=== PATIENT | male | born 1955 | race Caucasian/White ===

== ENCOUNTER 2017-11-16 07:01 | Inpatient (IN) | payer OTHER ==
--- NOTE | 2017-11-16 07:10 | ER Document Report ---
ED Cardiac - General Stated Complaint: SHORTNESS OF BREATH Time Seen by Provider: 11/16/17 07:09 Notes: 62-year-old male to the emergency department chief complaint of shortness of breath. Patient with one prior history event of atrial fibrillation with rapid ventricular response. Was seen in the emergency department. Spontaneously converted. Was subsequently discharged. Patient did not take any medication. Has chronic lower extremity edema. Was developing some shortness of breath and notice his heart was racing at around 4 AM this morning. Denies any other major symptoms. Denies any chest pain at this time. he presents today by private vehicle. Patient does smoke. Prior history relatively unremarkable. TRAVEL OUTSIDE OF THE [place] IN LAST 30 DAYS: No - HPI Patient complains to provider of: Shortness of breath Use of: denies: Alcohol, Amphetamines, Bath salts, Caffeine, Cocaine, Decongestants, Other Was the onset of pain: Sudden Is the pain a: Chronic problem Quality of pain: None - Related Data Allergies/Adverse Reactions: No Known Allergies Allergy (Verified 11/16/17 07:30) Past Medical History - General Information source: Patient, [facility] Records - Social History Smoking Status: Current Every Day Smoker Cigarette use (# per day): Yes Frequency of alcohol use: None Drug Abuse: None Lives with: Spouse/Significant other Family History: Reviewed & Not Pertinent - Past Medical History Cardiac Medical History: Reports: Hx Hypertension Denies: Hx Coronary Artery Disease, Hx Heart Attack Pulmonary Medical History: Denies: Hx Asthma, Hx Bronchitis, Hx COPD, Hx Pneumonia Neurological Medical History: Denies: Hx Cerebrovascular Accident, Hx Seizures Musculoskeltal Medical History: Denies Hx Arthritis Past Surgical History: Reports: Hx Orthopedic Surgery - knee shoulder - Immunizations Hx Diphtheria, Pertussis, Tetanus Vaccination: No Review of Systems - Review of Systems Notes: Constitutional: denies: Chills, Diaphoresis, Fever, Malaise, Weakness EENT: denies: Eye discharge, Blurred vision, Tearing, Double vision, Nose congestion, Nose discharge, Throat swelling, Mouth pain Cardiovascular: Positive for palpitations, Heart racing, Orthopnea, Dyspnea, bilateral lower extremity edema. denies: Chest pain Respiratory: denies: Cough, Hurts to breathe, Wheezing, positive for: Shortness of breath Gastrointestinal: denies: Abdominal pain, Diarrhea, Nausea, Vomiting, Black stools Genitourinary: denies: Burning, Dysuria, Discharge, Frequency, Flank pain, Hematuria Musculoskeletal: Back pain. denies: Joint pain, Joint swelling, Muscle pain, Muscle stiffness Hematologic/Lymphatic: denies: Anemia, Easy bleeding, Easy bruising, Blood clots Neurological/Psychological: denies: Confusion, Dementia, Depression, Lost consciousness Physical Exam - Vital signs Vitals: Resp Pulse Ox 18 96 11/16/17 07:14 11/16/17 07:14 Interpretation: Tachycardic, Tachypneic - Notes Notes: General: Alert no acute distress HEENT: Atraumatic, normocephalic, pupils equal round react to light and accommodation, extraocular muscles are intact, nose is non tender, posterior pharynx is without erythema or exudate. Tongue is unremarkable Heart: Heart rapid and irregular, bilateral lower extremity edema present. Lungs: Lungs clear to auscultation bilaterally, no wheezes, rhonchi, rales heard. patient is mildly tachypneic Abdomen: Abdomen is soft, nontender, nondistended, normal bowel sounds Neuro: cranial nerves II through XII intact, reflexes intact, sensation intact, Extremities:Moving all extremities. Equal strength bilaterally in the upper lower extremities. No significant deformity Skin: No lesions. Skin intact Psych: Normal insight. Normal judgment Course - Re-evaluation Re-evalutation: 11/16/17 07:29 Patient with atrial fibrillation of rapid ventricular response. EKG shows a A. fib with RVR pattern with heart rate of 156. Started on diltiazem bolus and drip. patient monitor, oxygen, aspirin and reassess. 11/16/17 07:38 mild pulmonary vascular congestion on x-ray indicating some mild CHF but normal heart size. Starting on drip at this time. 11/16/17 09:35 Patient still requiring drip to keep his heart rate in the low 100s. Labs are fairly unremarkable. Patient will need further workup at this time. Will consult with hospitalist for admit. Of note, blood pressure was a little low but now coming back up. - Vital Signs Vital signs: Temp Pulse Resp BP Pulse Ox 97.6 F 20 90/66 L 96 11/16/17 09:16 11/16/17 09:16 11/16/17 09:01 11/16/17 09:01 - Laboratory Result Diagrams: 11/16/17 07:20 11/16/17 07:20 Laboratory results interpreted by me: 11/16/17 07:20 Chloride 110 H Glucose 135 H Creatine Kinase 399 H Critical Care Note - Critical Care Note Total time excluding time spent on procedures (mins): 35 Comments: Atrial fibrillation with rapid ventricular response, IV management of blood pressure and heart rate Discharge - Discharge Clinical Impression: Atrial fibrillation with RVR Condition: Good Disposition: ADMITTED INPATIENT Admitting Provider: Hospitalist - [facility] Unit Admitted: ICU - [facility] Referrals: HEIDY RIVER MD [Primary Care Provider] - Follow up as needed
[2017-11-16] MEDS ORDERED: DILTIAZEM HCL 60 MG TABLET PO ONE (07:18)
[2017-11-16] MEDS ORDERED: DILTIAZEM HCL/D5W 125 MG/125 ML RTUINJ IV PRN (07:18)
[2017-11-16] MEDS ORDERED: DILTIAZEM HCL INJ 25 MG/5 ML VIAL IV ONE ×2 (07:18→08:35)
[2017-11-16] MEDS ORDERED: ASPIRIN 81 MG TABLET, CHEWABLE PO ONE (07:29)
--- NOTE | 2017-11-16 07:29 | RADIOLOGY REPORT (SQ) ---
EXAM DESCRIPTION: XR CHEST 1 VIEW COMPLETED DATE/TME: 11/16/2017 07:09 CLINICAL HISTORY: 62 years Male, sob COMPARISON: One day prior. NUMBER OF VIEWS/TECHNIQUE: 1/AP FINDINGS: Pulmonary vascular congestion, and normal cardiac silhouette. No pneumothorax. Moderate disc desiccation. IMPRESSION: No significant change.
[2017-11-16] MEDS ORDERED: NORMAL SALINE 500 ML IV ONE ×2 (07:30→08:04)
[2017-11-16 07:31] LABS: ABSOLUTE EOSINOPHILS # (AUTO) 0.2 10^3/uL (0.0-0.6); ABSOLUTE LYMPHOCYTES (AUTO) 3.2 10^3/uL (0.5-4.7); ABSOLUTE MONOCYTES (AUTO) 1.1 10^3/uL (0.1-1.4); ABSOLUTE NEUT (AUTO) 4.8 10^3/uL (1.7-8.2); BASOPHILS % (AUTO) 0.3 % (0-2); HEMATOCRIT 45.8 % (37.9-51.0); HEMOGLOBIN 15.9 g/dL (13.5-17.0); LYMPHOCYTES % (AUTO) 33.9 % (13-45); MEAN CORPUSCULAR HEMOGLOBIN 30.8 pg (27.0-33.4); MEAN CORPUSCULAR HGB CONC 34.6 g/dL (32.0-36.0); MEAN CORPUSCULAR VOLUME 89 fl (80-97); MONOCYTES % (AUTO) 11.7 % (3-13); PLATELET COUNT 253 10^3/uL (150-450); RED BLOOD COUNT 5.15 10^6/uL (4.35-5.55); SEGMENTED NEUTROPHILS % (AUTO) 52.1 % (42-78); TOTAL CELLS COUNTED % (AUTO) 100 %; WHITE BLOOD COUNT 9.3 10^3/uL (4.0-10.5)
[2017-11-16 07:43] LABS: ALANINE AMINOTRANSFERASE 40 U/L (21-72); ALBUMIN 4.1 g/dL (3.5-5.0); ALKALINE PHOSPHATASE 81 U/L (38-126); ANION GAP 10 (5-19); ASPARTATE AMINO TRANSFERASE 32 U/L (17-59); BILIRUBIN,DIRECT 0.2 mg/dL (0.0-0.4); BILIRUBIN,TOTAL 0.5 mg/dL (0.2-1.3); BLOOD UREA NITROGEN 14 mg/dL (7-20); CALCIUM 9.6 mg/dL (8.4-10.2); CARBON DIOXIDE 22 mmol/L (22-30); CHLORIDE 110 mmol/L (98-107); CREATINE KINASE 399 U/L (55-170); GLUCOSE 135 mg/dL (75-110); POTASSIUM 4.8 mmol/L (3.6-5.0); SODIUM 142.4 mmol/L (137-145); TOTAL PROTEIN 6.7 g/dL (6.3-8.2)
[2017-11-16 07:54] LABS: CREATINE KINASE MB 3.84 ng/mL (<4.55)
[2017-11-16 07:58] LABS: TROPONIN I < 0.012 ng/mL
--- NOTE | 2017-11-16 08:39 | EKG REPORT ---
SEVERITY:- ABNORMAL ECG - ATRIAL FIBRILLATION WITH RAPID V-RATE LEFT ANTERIOR FASCICULAR BLOCK LVH WITH SECONDARY REPOLARIZATION ABNORMALITY : Confirmed by: Tesha Cuevas 16-Nov-2017 08:39:31
[2017-11-16] MEDS ORDERED: ONDANSETRON HCL INJ/PF 4 MG/2 ML SDV IV PRN (09:46)
[2017-11-16] MEDS ORDERED: ACETAMINOPHEN 325 MG TABLET PO PRN (09:46)
[2017-11-16] MEDS ORDERED: ZOLPIDEM TARTRATE 5 MG TABLET PO PRN (09:46)
[2017-11-16] MEDS: APIXABAN 5 MG TABLET PO SCH ×2 (10:47→17:12)
[2017-11-16] MEDS: NICOTINE 21 MG/24 HR PATCH.TD24 TD PRN (10:47)
--- NOTE | 2017-11-16 11:23 | PDOC H&P ---
History of Present Illness Admission Date/PCP: 11/16/17 09:39 HEIDY RIVER MD Patient complains of: Patient's and chest tightness History of Present Illness: LESLIE PIÑA is a 62 year old male is admitted to [facility]'s emergency department with chief complaint of shortness of breath and palpitations. Patient with one prior history event of atrial fibrillation with rapid ventricular response. He states he was seen in the emergency department at that time, he spontaneously converted and was sent home. That was approximately a year ago. He does not take any medications routinely. He does not seek medical care except when ill either. He has chronic lower extremity edema. He states he woke up at 4 AM feeling somewhat short of breath and noticed his heart was racing. Was developing some shortness of breath and notice his heart was racing at around 4 AM this morning. He denies any specific chest pain associated with palpitations. He did notice decrease in exercise tolerance however. His symptoms improved with rest and worsened with activity. He does smoke approximately a pack per day for the last 40+ years. Prior history relatively unremarkable. Mother had a history of congestive heart failure and is . At the present time, he is asymptomatic. Past Medical History Cardiac Medical History: Reports: Atrial Fibrillation - x1 year with no meds, Hypertension Denies: Coronary Artery Disease, Myocardial Infarction Pulmonary Medical History: Denies: Asthma, Bronchitis, Chronic Obstructive Pulmonary Disease (COPD), Pneumonia EENT Medical History: Reports: None Neurological Medical History: Reports: None Denies: Seizures Endocrine Medical History: Reports: None Renal/ Medical History: Reports: None Malignancy Medical History: Reports: None GI Medical History: Reports: None Musculoskeltal Medical History: Denies: Arthritis Psychiatric Medical History: Reports: Tobacco Dependency Traumatic Medical History: Reports: None Hematology: Denies: Anemia Infectious Medical History: Reports: None Past Surgical History Past Surgical History: Reports: Orthopedic Surgery - Left knee, left shoulder and right great toe Social History Information Source: Patient Lives with: Spouse/Significant other Smoking Status: Current Every Day Smoker Cigarettes Packs Per Day: 1 Number of Years Smokin Last Time Smoked: 11/15/2017 Frequency of Alcohol Use: None Hx Recreational Drug Use: No Hx Prescription Drug Abuse: No - Advance Directive Resuscitation Status: Full Code Surrogate healthcare decision maker:: , should he not be able to make own decisions Family History Family History: CAD, Hypertension Parental Family History Reviewed: Yes Children Family History Reviewed: Yes Sibling(s) Family History Reviewed.: Yes Medication/Allergy Home Medications: No Home Medications 11/16/17 Allergies/Adverse Reactions: No Known Allergies Allergy (Verified 11/16/17 07:30) Review of Systems Constitutional: ABSENT: chills, fever(s), headache(s), weight gain, weight loss Eyes: ABSENT: visual disturbances Ears: ABSENT: hearing changes Cardiovascular: PRESENT: dyspnea on exertion, palpitations Respiratory: PRESENT: dyspnea. ABSENT: cough, hemoptysis Gastrointestinal: ABSENT: abdominal pain, constipation, diarrhea, hematemesis, hematochezia, nausea, vomiting Genitourinary: ABSENT: dysuria, hematuria Musculoskeletal: ABSENT: joint swelling Integumentary: ABSENT: rash, wounds Neurological: ABSENT: abnormal gait, abnormal speech, confusion, dizziness, focal weakness, syncope Psychiatric: ABSENT: anxiety, depression, homidical ideation, suicidal ideation Endocrine: ABSENT: cold intolerance, heat intolerance, polydipsia, polyuria Hematologic/Lymphatic: ABSENT: easy bleeding, easy bruising Physical Exam Vital Signs: Temp Pulse Resp BP Pulse Ox 97.6 F 21 H 102/68 95 11/16/17 09:16 11/16/17 11:10 11/16/17 10:54 11/16/17 11:10 General appearance: PRESENT: no acute distress, morbidly obese, well-developed, well-nourished Head exam: PRESENT: atraumatic, normocephalic Eye exam: PRESENT: conjunctiva pink, EOMI, PERRLA. ABSENT: scleral icterus Ear exam: PRESENT: normal external ear exam Mouth exam: PRESENT: moist, tongue midline Neck exam: ABSENT: carotid bruit, JVD, lymphadenopathy, thyromegaly Respiratory exam: PRESENT: clear to auscultation ady. ABSENT: rales, rhonchi, wheezes Cardiovascular exam: PRESENT: RRR. ABSENT: diastolic murmur, rubs, systolic murmur Pulses: PRESENT: normal dorsalis pedis pul Vascular exam: PRESENT: normal capillary refill GI/Abdominal exam: PRESENT: normal bowel sounds, soft. ABSENT: distended, guarding, mass, organolmegaly, rebound, tenderness Rectal exam: PRESENT: deferred Extremities exam: PRESENT: full ROM, +1 edema - Bilateral lower extremities. ABSENT: calf tenderness, clubbing Musculoskeletal exam: PRESENT: ambulatory, full ROM, normal inspection Neurological exam: PRESENT: alert, awake, oriented to person, oriented to place , oriented to time, oriented to situation, CN II-XII grossly intact. ABSENT: motor sensory deficit Psychiatric exam: PRESENT: appropriate affect, normal mood. ABSENT: homicidal ideation, suicidal ideation Skin exam: PRESENT: dry, intact, warm. ABSENT: cyanosis, rash Results Impressions: Chest X-Ray 11/16/17 07:09 IMPRESSION: No significant change. Assessment & Plan - Diagnosis (1) Atrial fibrillation with RVR Is this a current diagnosis for this admission?: Yes Plan: Patient is presently fairly well rate controlled on diltiazem at 10 mg/h. we will add Eliquis for anticoagulation. Consult cardiology since this is essentially new onset. Check serial troponins. EKG in the a.m. (2) Chest pain Is this a current diagnosis for this admission?: Yes Plan: Serial troponins, EKG, cardiology consult (3) Tobacco abuse Is this a current diagnosis for this admission?: Yes Plan: Counseled, contemplating smoking cessation. Nicotine patch and Xanax as needed (4) Morbid obesity Is this a current diagnosis for this admission?: Yes Plan: Counseled. - Time Time Spent: 50 to 70 Minutes Critical Time spent with patient: 25-34 minutes Smoking Cessation Education: 3 to 10 minutes Medications reviewed and adjusted accordingly: Yes Anticipated discharge: Home - Inpatient Certification Based on my medical assessment, after consideration of the patient's comorbidities, presenting symptoms, or acuity I expect that the services needed warrant INPATIENT care.: Yes I certify that my determination is in accordance with my understanding of Medicare's requirements for reasonable and necessary INPATIENT services [42 CFR 412.3e].: Yes Medical Necessity: Need Close Monitoring Due to Risk of Patient Decompensation, Need For Continuous Telemetry Monitoring, Risk of Complication if Not Cared For in Hospital, Risk of Diagnosis Which Will Require Inpatient Eval/Care/Monitoring
[2017-11-16] MEDS ORDERED: DRONEDARONE HYDROCHLORIDE 400 MG TABLET PO ONE (11:30)
--- NOTE | 2017-11-16 11:59 | PDOC CONSULTATION ---
Consultation Consult Date: 11/16/17 Attending physician:: SONIA ARTEAGA II Consult reason:: Atrial fibrillation with rapid ventricular response History of Present Illness Admission Date/PCP: 11/16/17 09:39 HEIDY RIVER MD Patient complains of: Fatigue and tiredness as well as palpitations History of Present Illness: LESLIE PIÑA is a 62 year old male is admitted to [facility]'s emergency department with chief complaint of shortness of breath and palpitations. Patient with one prior history event of atrial fibrillation with rapid ventricular response. He states he was seen in the emergency department at that time, he spontaneously converted and was sent home. That was approximately a year ago. He does not take any medications routinely. He does not seek medical care except when ill either. He has chronic lower extremity edema. He states he woke up at 4 AM feeling somewhat short of breath and noticed his heart was racing. Was developing some shortness of breath and notice his heart was racing at around 4 AM this morning. He denies any specific chest pain associated with palpitations. He did notice decrease in exercise tolerance however. His symptoms improved with rest and worsened with activity. He does smoke approximately a pack per day for the last 40+ years. Prior history relatively unremarkable. Mother had a history of congestive heart failure and is . At the present time, he is asymptomatic. This history reviewed by the hospitalist was reviewed and confirmed. Patient has seen me in the past in the office however it was in 2014. At that time he claims he had a stress test. He also had a echocardiogram. Patient also had PSG and a titration study therefore he has sleep apnea. However patient subsequently was lost to follow-up. Patient does describe history of restless leg syndrome. Patient denied prior history of cardiac problems except for a episode of transient atrial fibrillation. Past Medical History Cardiac Medical History: Reports: Atrial Fibrillation - x1 year with no meds, Hypertension Denies: Coronary Artery Disease, Myocardial Infarction Pulmonary Medical History: Denies: Asthma, Bronchitis, Chronic Obstructive Pulmonary Disease (COPD), Pneumonia EENT Medical History: Reports: None Neurological Medical History: Reports: None Denies: Seizures Endocrine Medical History: Reports: None Renal/ Medical History: Reports: None Malignancy Medical History: Reports: None GI Medical History: Reports: None Musculoskeltal Medical History: Denies: Arthritis Psychiatric Medical History: Reports: Tobacco Dependency Traumatic Medical History: Reports: None Hematology: Denies: Anemia Infectious Medical History: Reports: None Past Surgical History Past Surgical History: Reports: Orthopedic Surgery - Left knee, left shoulder and right great toe Social History Information Source: Patient Lives with: Spouse/Significant other Smoking Status: Current Every Day Smoker Cigarettes Packs Per Day: 1 Number of Years Smokin Last Time Smoked: 11/15/2017 Frequency of Alcohol Use: None Hx Recreational Drug Use: No Hx Prescription Drug Abuse: No - Advance Directive Resuscitation Status: Full Code Family History Family History: CAD, Hypertension Parental Family History Reviewed: Yes Children Family History Reviewed: Yes Sibling(s) Family History Reviewed.: Yes Medication/Allergy Home Medications: No Home Medications 11/16/17 Allergies/Adverse Reactions: No Known Allergies Allergy (Verified 11/16/17 07:30) Review of Systems Review of Systems: Please see history of present illness and past medical history as wall. Constitutional: No fever or chills reported. Head : No recent chronic headaches, recent head injury. Eyes: No recent eye pain, diplopia, redness, discharge, acute visual changes. Ears: No recent chronic ear pain, acute hearing loss, ear discharge. Oral cavity: No recent ulcerations, bleeding, oral cavity discomfort. Neck: No recent acute neck pain reported. Hematologic: No recent easy bruising or bleeding. Lymphatic: No recent lymph node enlargement reported. Cardiovascular system review: See history of present illness. Respiratory system review: No hemoptysis or blood clots in the lungs reported. Mild Shortness of breath on exertion Gastrointestinal system review: Negative for any recent acute hematemesis, melena. Genitourinary system review: No recent acute or chronic hematuria, flank pain, UTI etc. reported. Skin system review: Negative for any recent abnormal bruising, no rash, no pruritus reported. Neurologic: No prior history of strokes, mini strokes, seizure disorder. Psychologic: No history of major psychosis or major depression reported. Musculoskeletal: Minor aches and pains reported. No acute joint swelling reported. Endocrine: No recent polyuria, polydipsia, recent heat or cold intolerance. Physical Exam Vital Signs: Temp Pulse Resp BP Pulse Ox 97.6 F 12 117/68 97 11/16/17 09:16 11/16/17 11:41 11/16/17 11:14 11/16/17 11:41 Exam: GENERAL: well-nourished and in no acute distress. Alert and oriented x3 HEAD: Atraumatic, normocephalic. EYES: Pupils equal round and reactive to light, extraocular movements intact, sclera anicteric, conjunctiva are normal. ENT: TMs normal, nares patent, oropharynx clear without exudates. Moist mucous membranes. No oral ulcerations or bleeding gums noted NECK: supple without lymphadenopathy. Trachea is central. No cervical or axillary lymphadenopathy noted. Carotids are 2+, JVD WNL LUNGS: Respiration seems nonlabored, no significant accessory muscle action noted. Breath sounds clear to auscultation bilaterally and equal noted. No wheezes rales or rhonchi noted. No significant dullness noted on percussion. CHEST: Palpation of the chest wall shows no significant chest wall tenderness. 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 ABDOMEN: Soft, no significant tenderness appreciated, normoactive bowel sounds. No guarding, no rebound. No rigidity noted . No masses appreciated. EXTREMITIES: Pedal pulses are 1-2+, no calf tenderness noted. No clubbing or cyanosis. 1+ pedal edema noted NEUROLOGICAL: Focused neurological exam showed no significant neurologic deficit. Normal speech, no focal weakness appreciated. PSYCH: Normal mood, normal affect. Judgment and insight within normal limits. SKIN: No significant ecchymosis, skin is noted to be warm. MUSCULOSKELETAL EXAM: No significant acute joint swelling noted. Results Laboratory Results: 11/16/17 10:45 Troponin I 0.020 EKG Comments: EKG shows atrial fibrillation with rapid ventricular response. No acute ST-T wave changes are noted. Impressions: Chest X-Ray 11/16/17 07:09 IMPRESSION: No significant change. Assessment & Plan - Diagnosis (1) Atrial fibrillation with RVR Is this a current diagnosis for this admission?: Yes (2) Restless leg syndrome Is this a current diagnosis for this admission?: Yes (3) HTN (hypertension) Qualifiers: Hypertension type: essential hypertension Qualified Code(s): I10 - Essential (primary) hypertension Is this a current diagnosis for this admission?: Yes (4) Tobacco abuse Is this a current diagnosis for this admission?: Yes (5) Sleep apnea syndrome Qualifiers: Sleep apnea type: unspecified type Qualified Code(s): G47.30 - Sleep apnea , unspecified Is this a current diagnosis for this admission?: Yes (6) Obesity Qualifiers: Obesity type: unspecified obesity type Obesity classification: unspecified obesity classification Serious obesity comorbidity presence: unspecified whether serious comorbidity present Qualified Code(s): E66.9 - Obesity, unspecified Is this a current diagnosis for this admission?: Yes - Notes Notes: Atrial fibrillation with rapid ventricular response: Patient is at risk for thromboembolic phenomena. This was explained. Agree with Eliquis therapy. Agree with rate control with Cardizem. Will start patient on multaq at 400 mg p.o. twice daily. Discussed association of sleep apnea and obesity with atrial fibrillation. Hopefully patient will convert to sinus rhythm. Would recommend regular follow- up. Eventually if patient remains in atrial fibrillation, will consider cardioversion/ablation/other antiarrhythmic therapy if needed. Hypertension: This was noted on as 1 of his previous diagnosis. Monitor blood pressure. Tobacco abuse: Patient has been advised to quit smoking. Sleep apnea syndrome: Discussed that he was noted to have this on prior testing. Patient probably still has it but this diagnosis will need to be reestablished. Discussed that treatment of sleep apnea will prevent recurrence of atrial fibrillation. Obesity: Patient encouraged in weight loss. Restless leg syndrome: Tends to get better with treatment of sleep apnea. May consider dopamine agonist etc. for treatment. - Time Time Spent: 30 to 50 Minutes - CODE STATUS was discussed, patient remains full code. Surrogate decision-maker patient's spouse. Multiple medical problems were addressed. More than 50% of the time spent coordinating care, discussing management plans with involved caregivers. Management plans discussed with involved personnels. Medical decision making was of moderate to high complexity , patient's has multiple comorbidities. Medications reviewed and adjusted accordingly: Yes
[2017-11-16] MEDS ORDERED: AMIODARONE HCL 150 MG in DEXTROSE 5%-WATER 100 ML IV ONE (12:00)
--- NOTE | 2017-11-16 18:47 | XCELERA REPORT ---
[address] [address] Transthoracic Echocardiogram Report Name: LESLIE PIÑA Age: 62 yrs Gender: Male : 1955 Patient Status: Inpatient Patient Location: [address] [place] [address] Study Date: 11/16/2017 02:01 PM Height: 76 in Weight: 335 lb BSA: 2.8 m2 Procedure: A complete two-dimensional transthoracic echocardiogram was performed (2D, M-mode, spectral and color flow Doppler). The study was technically difficult with many images being suboptimal in quality. Reason For Study: A Fib, RVR Ordering Physician: TESHA ACRDONA Performed By: Kimberly Gomez Interpretation Summary The left ventricular ejection fraction is normal. There is mild concentric left ventricular hypertrophy. The left ventricle is grossly normal size. Wall motion cannot be accurately commented on, but no definite regional wall motion abnormalities noted. The right ventricle is grossly normal size. The right ventricular systolic function is normal. The right atrium is normal in size The left atrial size is normal. There is a trace amount of mitral regurgitation There is no mitral valve stenosis. No aortic regurgitation is present. There is no aortic valve stenosis There is a trace or physiologic amount of tricuspid regurgitation Tricuspid regurgitation jet envelope not well defined to measure RV systolic pressure accurately. The aortic root is not well visualized. The inferior vena cava appeared normal and decreased > 50% with respiration (RAP 5-10 mmHg) There is no pericardial effusion. MMode/2D Measurements & Calculations RVDd: 2.9 cm LVIDd: 4.3 cm FS: 31.8 % Ao root diam: 3.0 cm IVSd: 1.2 cm LVIDs: 2.9 cm EDV(Teich): 82.6 ml LVPWd: 1.2 cm ESV(Teich): 32.9 ml Ao root area: 6.8 cm2 EF(Teich): 60.2 % LA dimension: 3.3 cm Doppler Measurements & Calculations MV E max jayesh: MV P1/2t max jayesh: Ao V2 max: LV V1 max P.8 cm/sec 91.8 cm/sec 128.6 cm/sec 5.2 mmHg MV P1/2t: 34.2 msec Ao max PG: LV V1 max: 6.6 mmHg 113.5 cm/sec MVA(P1/2t): 6.4 cm2 MV dec slope: 785.9 cm/sec2 MV dec time: 0.11 sec PA V2 max: TR max jayesh: 87.4 cm/sec 206.3 cm/sec PA max PG: TR max P.0 mmHg 3.1 mmHg Left Ventricle The left ventricle is grossly normal size. There is mild concentric left ventricular hypertrophy. The left ventricular ejection fraction is normal. LV diastolic function could not be adequately assessed due to atrial fibrilation. Wall motion cannot be accurately commented on, but no definite regional wall motion abnormalities noted. Right Ventricle The right ventricle is grossly normal size. There is normal right ventricular wall thickness. The right ventricular systolic function is normal. Atria The right atrium is normal in size. The left atrial size is normal. Mitral Valve The mitral valve is grossly normal. There is no mitral valve stenosis. There is a trace amount of mitral regurgitation. Aortic Valve The aortic valve is grossly normal. There is no aortic valve stenosis. No aortic regurgitation is present. Tricuspid Valve The tricuspid valve is not well visualized, but is grossly normal. There is no tricuspid stenosis. There is a trace or physiologic amount of tricuspid regurgitation. Tricuspid regurgitation jet envelope not well defined to measure RV systolic pressure accurately. Pulmonic Valve The pulmonic valve is not well visualized. Great Vessels The aortic root is not well visualized. The inferior vena cava appeared normal and decreased > 50% with respiration (RAP 5-10 mmHg). Effusions There is no pericardial effusion. : TESHA CARDONA > Tesha Cardona
[2017-11-16] MEDS: DILTIAZEM HCL/D5W 125 MG/125 ML RTUINJ IV PRN (19:14)
[2017-11-16] MEDS: ALPRAZOLAM 0.5 MG TABLET PO PRN (20:45)
[2017-11-16] MEDS: DRONEDARONE HYDROCHLORIDE 400 MG TABLET PO SCH (21:07)
[2017-11-17 07:37] LABS: PROTHROMBIN TIME 13.7 SEC (11.4-15.4)
[2017-11-17 07:38] LABS: PARTIAL THROMBOPLASTIN TIME 36.9 SEC (23.5-35.8)
[2017-11-17 07:55] LABS: ALANINE AMINOTRANSFERASE 37 U/L (21-72); ALBUMIN 3.2 g/dL (3.5-5.0); ALKALINE PHOSPHATASE 60 U/L (38-126); ANION GAP 9 (5-19); ASPARTATE AMINO TRANSFERASE 24 U/L (17-59); BILIRUBIN,DIRECT 0.3 mg/dL (0.0-0.4); BILIRUBIN,TOTAL 0.6 mg/dL (0.2-1.3); BLOOD UREA NITROGEN 14 mg/dL (7-20); CARBON DIOXIDE 24 mmol/L (22-30); CHLORIDE 109 mmol/L (98-107); CHOLESTEROL 133.45 mg/dL (0-200); GLUCOSE 83 mg/dL (75-110); POTASSIUM 4.6 mmol/L (3.6-5.0); SODIUM 142.3 mmol/L (137-145); TOTAL PROTEIN 5.6 g/dL (6.3-8.2); TRIGLYCERIDES 231 mg/dL (<150)
[2017-11-17 08:05] LABS: DIRECT LDL 76 mg/dL (<100)
[2017-11-17 08:08] LABS: VLDL CHOLESTEROL 46.2 mg/dL (10-31)
[2017-11-17 08:11] LABS: FREE T3 4.19 pg/mL (2.77-5.27); FREE T4 (FREE THYROXINE) 0.84 ng/dL (0.78-2.19)
[2017-11-17 08:24] LABS: THYROID STIMULATING HORMONE 1.9 uIU/mL (0.47-4.68)
--- NOTE | 2017-11-17 09:39 | EKG REPORT ---
SEVERITY:- ABNORMAL ECG - ATRIAL FIBRILLATION LEFT AXIS DEVIATION PROLONGED QT INTERVAL : Confirmed by: Tesha Cuevas 17-Nov-2017 09:38:33
[2017-11-17] MEDS: ALPRAZOLAM 0.5 MG TABLET PO PRN (09:49)
[2017-11-17] MEDS: DRONEDARONE HYDROCHLORIDE 400 MG TABLET PO SCH ×2 (09:49→21:14)
[2017-11-17] MEDS: APIXABAN 5 MG TABLET PO SCH ×2 (09:50→18:19)
[2017-11-17] MEDS: DILTIAZEM HCL/D5W 125 MG/125 ML RTUINJ IV PRN ×2 (10:21→20:37)
[2017-11-17] MEDS: NICOTINE 21 MG/24 HR PATCH.TD24 TD PRN (10:22)
[2017-11-17] MEDS: METOPROLOL SUCCINATE 25 MG TAB.SR.24H PO SCH ×2 (11:27→21:13)
--- NOTE | 2017-11-17 12:12 | PDOC PROGRESS REPORT ---
Subjective Progress Note for:: 11/17/17 Subjective:: Patient seems to be doing better with gradual improvement. Pt is denying any chest arm or neck discomfort. Patient denying any PND, orthopnea. Patient denied any sustained palpitations, dizziness, syncope, near syncope. Patient denying any fever chills. Patient denying any other significant discomfort. Patient is maintaining atrial fibrillation. Heart rate is very variable, tends to go up with exertion. Review of systems: Rest review of systems negative. Medications: Medications have been reviewed. Reason For Visit: ATRIAL FIBRILLATION WITH RAPID VENTRICULAR RESPONS Physical Exam Vital Signs: Temp Pulse Resp BP Pulse Ox 97.9 F 113 H 20 128/74 H 92 11/17/17 07:22 11/17/17 11:00 11/17/17 07:22 11/17/17 11:00 11/17/17 07:22 Intake & Output 11/16/17 11/17/17 11/18/17 06:59 06:59 06:59 Intake Total 1097 Output Total 1075 Balance 22 Weight 154.3 kg Exam: GENERAL: well-nourished and in no acute distress. Alert and oriented x3 HEAD: Atraumatic, normocephalic. EYES: Pupils equal round and reactive to light, extraocular movements intact, sclera anicteric, conjunctiva are normal. ENT: TMs normal, nares patent, oropharynx clear without exudates. Moist mucous membranes. No oral ulcerations or bleeding gums noted NECK: supple without lymphadenopathy. Trachea is central. No cervical or axillary lymphadenopathy noted. Carotids are 2+, JVD WNL LUNGS: Respiration seems nonlabored, no significant accessory muscle action noted. Breath sounds clear to auscultation bilaterally and equal noted. No wheezes rales or rhonchi noted. No significant dullness noted on percussion. CHEST: Palpation of the chest wall shows no significant chest wall tenderness. 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 ABDOMEN: Soft, no significant tenderness appreciated, normoactive bowel sounds. No guarding, no rebound. No rigidity noted . No masses appreciated. EXTREMITIES: Pedal pulses are 1-2+, no calf tenderness noted. No clubbing or cyanosis. negative pedal edema noted NEUROLOGICAL: Focused neurological exam showed no significant neurologic deficit. Normal speech, no focal weakness appreciated. PSYCH: Normal mood, normal affect. Judgment and insight within normal limits. SKIN: No significant ecchymosis, skin is noted to be warm. MUSCULOSKELETAL EXAM: No significant acute joint swelling noted. Results Laboratory Results: 11/17/17 06:19 18 11/17/17 06:19 06:19 Sodium 142.3 Potassium 4.6 Chloride 109 H Carbon Dioxide 24 Anion Gap 9 BUN 14 Creatinine 0.74 Est GFR ( Amer) > 60 Est GFR (Non-Af Amer) > 60 Glucose 83 Calcium 9.0 Magnesium 2.0 Total Bilirubin 0.6 AST 24 ALT 37 Alkaline Phosphatase 60 Total Protein 5.6 L Albumin 3.2 L Triglycerides 231 H Cholesterol 133.45 LDL Cholesterol Direct 76 VLDL Cholesterol 46.2 H HDL Cholesterol 28 L TSH 1.90 Free T4 0.84 Free T3 pg/mL 4.19 18 11/17/17 10:45 06:19 Troponin I 0.020 NT-Pro-B Natriuret Pep 1640 H EKG Comments: Atrial fibrillation with somewhat rapid heart rate response. Impressions: Chest X-Ray 11/16/17 07:09 IMPRESSION: No significant change. Assessment & Plan - Diagnosis (1) Atrial fibrillation with RVR Is this a current diagnosis for this admission?: Yes (2) Restless leg syndrome Is this a current diagnosis for this admission?: Yes (3) HTN (hypertension) Qualifiers: Hypertension type: essential hypertension Qualified Code(s): I10 - Essential (primary) hypertension Is this a current diagnosis for this admission?: Yes (4) Tobacco abuse Is this a current diagnosis for this admission?: Yes (5) Sleep apnea syndrome Qualifiers: Sleep apnea type: unspecified type Qualified Code(s): G47.30 - Sleep apnea , unspecified Is this a current diagnosis for this admission?: Yes (6) Obesity Qualifiers: Obesity type: unspecified obesity type Obesity classification: unspecified obesity classification Serious obesity comorbidity presence: unspecified whether serious comorbidity present Qualified Code(s): E66.9 - Obesity, unspecified Is this a current diagnosis for this admission?: Yes - Notes Notes: 2D echo results were reviewed. Study was technically difficult. Intracardiac thrombus cannot be excluded. Patient could have been having paroxysmal A. fib. Therefore it was felt that cardioversion should preferably be performed if needed after 3-4 weeks of adequate anticoagulation. This was explained to the patient. Have also scheduled patient for a nuclear stress test. This is to rule out any CAD and get another assessment of LVEF by EKG gated imaging. Atrial fibrillation with rapid ventricular response: Patient is at risk for thromboembolic phenomena. This was explained. Agree with Eliquis therapy. Patient seems to have increased heart rate with exertion. Will add beta-abhilash , metoprolol succinate at 25 mg p.o. twice daily. Continue patient on multaq at 400 mg p.o. twice daily. Discussed association of sleep apnea and obesity with atrial fibrillation. Hypertension: This was noted on as 1 of his previous diagnosis. Monitor blood pressure. Tobacco abuse: Patient has been advised to quit smoking. Continue nicotine patch while in the hospital. Sleep apnea syndrome: Discussed that he was noted to have this on prior testing. Patient probably still has it but this diagnosis will need to be reestablished. Discussed that treatment of sleep apnea will prevent recurrence of atrial fibrillation. Obesity: Patient encouraged in weight loss. Restless leg syndrome: Tends to get better with treatment of sleep apnea. May consider dopamine agonist etc. for treatment. - Time Time with patient: Greater than 35 minutes - CODE STATUS was discussed, patient remains full code. Surrogate decision-maker patient's . Multiple medical problems were addressed. More than 50% of the time spent coordinating care, discussing management plans with involved caregivers. Management plans discussed with involved personnels. Medical decision making was of moderate to high complexity, patient's has multiple comorbidities. Medications reviewed and adjusted accordingly: Yes
[2017-11-17] MEDS ORDERED: FUROSEMIDE 40 MG TABLET PO ONE (14:00)
--- NOTE | 2017-11-17 19:16 | PDOC PROGRESS REPORT ---
Subjective Progress Note for:: 11/17/17 Subjective:: Feeling better. Denies palpitations at this time, no fever or chills, no chest pain or shortness of breath. No abdominal pain, no nausea or vomiting. Reason For Visit: AFIB WITH RVR Physical Exam Vital Signs: Temp Pulse Resp BP Pulse Ox 97.2 F 111 H 16 123/97 H 94 11/17/17 15:34 11/17/17 18:00 11/17/17 15:34 11/17/17 18:00 11/17/17 15:34 Intake & Output 11/16/17 11/17/17 11/18/17 06:59 06:59 06:59 Intake Total 865 Output Total 800 Balance 65 Weight 154.3 kg GEN: NAD, well-developed, well-nourished CV: Irregularly irregular, NL S1S2 LUNGS: CTA bilaterally ABDOMEN Soft, NT, +BS EXTERMITIES: No e/c/c NEURO: Alert, oriented 3, no acute weakness Results Laboratory Results: 11/17/17 17:22 Troponin I < 0.012 Impressions: Chest X-Ray 11/16/17 07:09 IMPRESSION: No significant change. Assessment & Plan - Plan Summary Plan Summary: (1) Atrial fibrillation with RVR Is this a current diagnosis for this admission?: Yes Plan: Patient was started on Multaq by Dr. Cuevas of cardiology and presently still on diltiazem at 10 mg/h. Will continue Eliquis for anticoagulation. 2D echo with no obvious thrombus, but cannot exclude. Patient likely will need 4 weeks of anticoagulation and possible cardioversion as outpatient per supervisor area. . (2) Chest pain Is this a current diagnosis for this admission?: Yes Plan: Resolved (3) Tobacco abuse Is this a current diagnosis for this admission?: Yes Plan: Counseled smoking cessation. Continue nicotine patch (4) Morbid obesity Is this a current diagnosis for this admission?: Yes Plan: Counseled weight loss.
[2017-11-18 06:24] LABS: ABSOLUTE BASOPHILS # (AUTO) 0.1 10^3/uL (0.0-0.2); ABSOLUTE EOSINOPHILS # (AUTO) 0.2 10^3/uL (0.0-0.6); ABSOLUTE LYMPHOCYTES (AUTO) 3.4 10^3/uL (0.5-4.7); ABSOLUTE MONOCYTES (AUTO) 1.1 10^3/uL (0.1-1.4); ABSOLUTE NEUT (AUTO) 5.6 10^3/uL (1.7-8.2); BASOPHILS % (AUTO) 0.6 % (0-2); EOSINOPHILS % (AUTO) 2.4 % (0-6); HEMATOCRIT 42.8 % (37.9-51.0); HEMOGLOBIN 14.8 g/dL (13.5-17.0); LYMPHOCYTES % (AUTO) 32.7 % (13-45); MEAN CORPUSCULAR HEMOGLOBIN 30.6 pg (27.0-33.4); MEAN CORPUSCULAR HGB CONC 34.5 g/dL (32.0-36.0); MEAN CORPUSCULAR VOLUME 89 fl (80-97); MONOCYTES % (AUTO) 10.7 % (3-13); PLATELET COUNT 218 10^3/uL (150-450); RED BLOOD COUNT 4.83 10^6/uL (4.35-5.55); RED CELL DISTRIBUTION WIDTH 13.1 % (11.5-14.0); SEGMENTED NEUTROPHILS % (AUTO) 53.6 % (42-78); TOTAL CELLS COUNTED % (AUTO) 100 %; WHITE BLOOD COUNT 10.5 10^3/uL (4.0-10.5)
[2017-11-18 06:39] LABS: ANION GAP 8 (5-19); BLOOD UREA NITROGEN 15 mg/dL (7-20); CALCIUM 9.1 mg/dL (8.4-10.2); CARBON DIOXIDE 22 mmol/L (22-30); CHLORIDE 111 mmol/L (98-107); GLUCOSE 91 mg/dL (75-110); POTASSIUM 4.8 mmol/L (3.6-5.0); SODIUM 140.5 mmol/L (137-145)
[2017-11-18] MEDS: DILTIAZEM HCL/D5W 125 MG/125 ML RTUINJ IV PRN (07:02)
[2017-11-18] MEDS ORDERED: METOPROLOL SUCCINATE 25 MG TAB.SR.24H PO ONE (08:30)
[2017-11-18] MEDS ORDERED: DILTIAZEM HCL 240 MG CAPSULE.CR PO ONE (09:00)
--- NOTE | 2017-11-18 09:36 | EKG REPORT ---
SEVERITY:- ABNORMAL ECG - ATRIAL FIBRILLATION LEFT AXIS DEVIATION PROLONGED QT INTERVAL : Confirmed by: Tesha Cuevas 18-Nov-2017 09:35:46
[2017-11-18] MEDS ORDERED: FUROSEMIDE 40 MG TABLET PO SCH (10:00)
[2017-11-18] MEDS: DRONEDARONE HYDROCHLORIDE 400 MG TABLET PO SCH (11:04)
[2017-11-18] MEDS: METOPROLOL SUCCINATE 25 MG TAB.SR.24H PO SCH (11:04)
[2017-11-18] MEDS: APIXABAN 5 MG TABLET PO SCH (11:04)
--- NOTE | 2017-11-18 12:35 | DRAGON STRESS TEST REPORT ---
INTRAVENOUS LEXISCAN CARDIOLITE STRESS TEST USING SINGLE PHOTON EMMISION COMPUTERIZED TOMOGRAPHIC. DATE OF PROCEDURE: November 18, 2017, INDICATION : Atrial fibrillation and dyspnea. CARDIAC RISK FACTORS: Hypertension, tobacco abuse, family history of CAD RESTING EKG: Atrial fibrillation, no baseline ST-T wave changes noted. STRESS EKG: No significant ST segment changes noted with LexiScan bolus REASON FOR TERMINATION: Protocol. PROCEDURE REPORT: Baseline heart rate 107 beats per minute with blood pressure of 107/74. Patient had no significant complaints. Patient was bolused with Lexiscan 0.4 mg intravenously followed by saline bolus. Heart rate at 2 minutes post bolus 98 with a blood pressure of 84/57. 3 minutes post bolus heart rate 100 with blood pressure of 103/64. No significant EKG changes were noted. Patient had no significant complaints during the procedure or postprocedure. CONCLUSIONS: Normal EKG and hemodynamic response to IV LexiScan. NUCLEAR DATA: At rest the patient was given 15.59 millicuries of technetium 99 sestamibi injected intravenously. As per protocol rest gated SPECT images were obtained. On day of stress test, the patient was given intravenous LexiScan at a dose of 0.4 mg in 5 mL intravenously, followed by flush with normal saline. Subsequently the stress dose of 46.6 millicuries of technetium 99 sestamibi was injected intravenously. As per protocol stress gated images were obtained. NUCLEAR INTERPRETATION: Both raw and processed data were used for interpretation. Visual, qualitative, computer-generated quantitative data was used. There was good myocardial uptake of technetium compound. Motion artifact and soft tissue attenuations were noted. Increased visceral uptake was noted. No definitive areas of transient perfusion defect noted, No definitive areas of fixed perfusion defect or scars noted. EKG gated imaging showed LV EF at 41%, visually looked better, rest and stress gated EF similar visually. T. I D. ratio was 1.06. Lung heart ratio noted to be within normal limits 0.38. No significant extracardiac and abnormal radiotracer activities were noted. RV free wall uptake was noted to be WNL. IMPRESSION: Also refer to comments under nuclear interpretation. Also test results needs to be interpreted in the context of pretest probability. 1. No definitive areas of transient perfusion defect noted. 2. There is no definitive scintigraphic evidence of myocardial infarction/scar. 3. EKG gated imaging shows left ventricular ejection fraction of approx. 41 %. Visually looks better. 4. Clinical correlation requested as occasionally single vessel disease or balanced ischemia could be missed. In approximately 10% of the cases Lexiscan may not cause adequate vasodilatory stress. RECOMMENDATIONS: Aggressive risk factor modification and medical management. Further evaluation may be needed if continued symptoms or other high risk indicators are noted on clinical evaluation. Close cardiology follow-up is also recommended. Clinical correlation with echocardiogram derived ejection fraction. Inability to exercise by itself can lead to increased cardiovascular event risks. Consider cardiology consultation and or follow-up if clinically indicated. I am available for cardiology evaluation and consultation if requested by the primary clinician, unless patient already has a converter skimmer. RICHARD
--- NOTE | 2017-11-18 12:54 | PDOC PROGRESS REPORT ---
Subjective Progress Note for:: 11/18/17 Subjective:: Patient seen multiple times. In the morning nuclear stress test was explained to the patient in detail. Patient was also seen during the nuclear stress test. Patient seen in the afternoon and nuclear stress test results were discussed. Patient seems to be doing better with gradual improvement. Pt is denying any chest arm or neck discomfort. Patient denying any PND, orthopnea. Patient denying any other significant discomfort. Patient is maintaining atrial fibrillation. Heart rate is very variable, tends to go up with exertion. However over the last 24 hours, this has been more stable. Review of systems: Rest review of systems negative. Medications: Medications have been reviewed. Reason For Visit: AFIB WITH RVR Physical Exam Vital Signs: Temp Pulse Resp BP Pulse Ox 98.0 F 48 L 20 116/64 97 11/18/17 11:46 11/18/17 11:46 11/18/17 11:46 11/18/17 11:46 11/18/17 11:46 Intake & Output 11/17/17 11/18/17 11/19/17 06:59 06:59 06:59 Intake Total 1727 500 Output Total 1575 150 Balance 152 350 Weight 154.7 kg Exam: GENERAL: well-nourished and in no acute distress. Alert and oriented x3 HEAD: Atraumatic, normocephalic. EYES: Pupils equal round and reactive to light, extraocular movements intact, sclera anicteric, conjunctiva are normal. ENT: TMs normal, nares patent, oropharynx clear without exudates. Moist mucous membranes. No oral ulcerations or bleeding gums noted NECK: supple without lymphadenopathy. Trachea is central. No cervical or axillary lymphadenopathy noted. Carotids are 2+, JVD WNL LUNGS: Respiration seems nonlabored, no significant accessory muscle action noted. Breath sounds clear to auscultation bilaterally and equal noted. No wheezes rales or rhonchi noted. No significant dullness noted on percussion. CHEST: Palpation of the chest wall shows no significant chest wall tenderness. 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 ABDOMEN: Soft, no significant tenderness appreciated, normoactive bowel sounds. No guarding, no rebound. No rigidity noted . No masses appreciated. EXTREMITIES: Pedal pulses are 1-2+, no calf tenderness noted. No clubbing or cyanosis. 1+ pedal edema noted, with mild spider veins being present NEUROLOGICAL: Focused neurological exam showed no significant neurologic deficit. Normal speech, no focal weakness appreciated. PSYCH: Normal mood, normal affect. Judgment and insight within normal limits. SKIN: No significant ecchymosis, skin is noted to be warm. MUSCULOSKELETAL EXAM: No significant acute joint swelling noted. Results Laboratory Results: 11/18/17 05:44 11/18/17 05:44 11/18/17 11/18/17 05:44 05:44 WBC 10.5 RBC 4.83 Hgb 14.8 Hct 42.8 MCV 89 MCH 30.6 MCHC 34.5 RDW 13.1 Plt Count 218 Seg Neutrophils % 53.6 Lymphocytes % 32.7 Monocytes % 10.7 Eosinophils % 2.4 Basophils % 0.6 Absolute Neutrophils 5.6 Absolute Lymphocytes 3.4 Absolute Monocytes 1.1 Absolute Eosinophils 0.2 Absolute Basophils 0.1 Sodium 140.5 Potassium 4.8 Chloride 111 H Carbon Dioxide 22 Anion Gap 8 BUN 15 Creatinine 0.74 Est GFR ( Amer) > 60 Est GFR (Non-Af Amer) > 60 Glucose 91 Calcium 9.1 11/17/17 17:22 Troponin I < 0.012 Impressions: Chest X-Ray 11/16/17 07:09 IMPRESSION: No significant change. Assessment & Plan - Diagnosis (1) Atrial fibrillation with RVR Is this a current diagnosis for this admission?: Yes (2) Restless leg syndrome Is this a current diagnosis for this admission?: Yes (3) HTN (hypertension) Qualifiers: Hypertension type: essential hypertension Qualified Code(s): I10 - Essential (primary) hypertension Is this a current diagnosis for this admission?: Yes (4) Tobacco abuse Is this a current diagnosis for this admission?: Yes (5) Sleep apnea syndrome Qualifiers: Sleep apnea type: unspecified type Qualified Code(s): G47.30 - Sleep apnea , unspecified Is this a current diagnosis for this admission?: Yes (6) Obesity Qualifiers: Obesity type: unspecified obesity type Obesity classification: unspecified obesity classification Serious obesity comorbidity presence: unspecified whether serious comorbidity present Qualified Code(s): E66.9 - Obesity, unspecified Is this a current diagnosis for this admission?: Yes - Notes Notes: Nuclear stress test was negative for pharmacologic stress-induced ischemia. This was discussed with the patient. Patient does want to go home. He claims that he has ambulated and did reasonably well and is comfortable by himself going home. I believe he can be discharged with a cardiac event monitor which he can get this afternoon from my office. Patient could be discharged on Cardizem CD 240 mg p.o. daily, metoprolol succinate 50 mg p.o. twice daily, Eliquis 5 mg p.o. twice daily with close cardiology follow-up and a event monitor. Further evaluation such as EP referral etc. can be performed as an outpatient through my office. Atrial fibrillation with rapid ventricular response: Patient is at risk for thromboembolic phenomena. This was explained. Continue Eliquis therapy. Patient seems to have increased heart rate with exertion. However this is better since beta-abhilash dose was increased. Stop multaq since this has been ineffective. Discussed association of sleep apnea and obesity with atrial fibrillation. Hypertension: Currently reasonably well controlled. Monitor blood pressure. Tobacco abuse: Patient has been advised to quit smoking. Continue nicotine patch while in the hospital. Sleep apnea syndrome: Discussed that he was noted to have this on prior testing. Patient probably still has it but this diagnosis will need to be reestablished. Discussed that treatment of sleep apnea will prevent recurrence of atrial fibrillation. Obesity: Patient encouraged in weight loss. Restless leg syndrome: Tends to get better with treatment of sleep apnea. May consider dopamine agonist etc. for treatment. - Time Time with patient: Greater than 35 minutes - Patient was seen multiple times. Total time exceeds 40 minutes. In the morning nuclear stress test procedure, risks benefits, alternatives were discussed. Patient seen during the stress test. Patient also seen after stress test when results were discussed with the patient in detail. Patient's questions were answered. Nuclear stress test results were discussed with the patient. Patient was informed that no definitive evidence of pharmacologic stress-induced ischemia noted. No definite fixed defects were noted. Patient informed that occasionally significant single vessel disease or balanced ischemia could be missed. However based on the current study results, would recommend aggressive risk factor modification and medical therapy. It may also be worthwhile to consider evaluation or empiric management of other causes of chest pain. Should no other cause be found and if persistent in having chest pain, then cardiac catheterization should be considered. Right now, recommendations are for aggressive risk factor modification and medical management. Medications reviewed and adjusted accordingly: Yes
[2017-11-18] MEDS ORDERED: REGADENOSON INJ 0.4 MG/5 ML DISP.SYRIN IV ONE (14:31)
--- NOTE | 2017-11-18 15:42 | Physician Advisory Note ---
Physician Advisor ProgressNote .: [facility], I have reviewed the medical record for this patient. Physician Advisor Statement: Please don't forget to document: 1. the most likely cause of the CP 2. THALIA, ( if you agree pt has this ) Thanks! CK
--- NOTE | 2017-11-18 17:11 | PDOC DISCHARGE SUMMARY ---
General - Admit/Disc Date/PCP Admission Date/Primary Care Provider: 11/17/17 12:34 HE[place]Y R[place] MD Discharge Date: 11/18/17 - Discharge Diagnosis (1) Atrial fibrillation with RVR Is this a current diagnosis for this admission?: Yes (2) Morbid obesity Is this a current diagnosis for this admission?: Yes (3) Sleep apnea syndrome Is this a current diagnosis for this admission?: Yes (4) Chest pain Is this a current diagnosis for this admission?: Yes - Additional Information Resuscitation Status: Full Code Prescriptions: Apixaban [Eliquis 5 mg Tablet] 5 mg PO BID #60 tablet Diltiazem HCl [Cardizem 30 mg Tablet] 1 tab PO Q8 #90 tab Metoprolol Succinate [Toprol Xl 25 mg Tab.sr] 25 mg PO Q12 #60 tab.sr.24h Home Medications: Apixaban [Eliquis 5 mg Tablet] 5 mg PO BID #60 tablet 11/18/17 Diltiazem HCl [Cardizem 30 mg Tablet] 1 tab PO Q8 #90 tab 11/18/17 Metoprolol Succinate [Toprol Xl 25 mg Tab.sr] 25 mg PO Q12 #60 tab.sr.24h History of Present Illness History of Present Illness: LESLIE PIÑA is a 62 year old male is admitted to [facility]'s emergency department with chief complaint of shortness of breath and palpitations. Patient with one prior history event of atrial fibrillation with rapid ventricular response. He states he was seen in the emergency department at that time, he spontaneously converted and was sent home. That was approximately a year ago. He does not take any medications routinely. He does not seek medical care except when ill either. He has chronic lower extremity edema. He states he woke up at 4 AM feeling somewhat short of breath and noticed his heart was racing. Was developing some shortness of breath and notice his heart was racing at around 4 AM this morning. He denies any specific chest pain associated with palpitations. He did notice decrease in exercise tolerance however. His symptoms improved with rest and worsened with activity. He does smoke approximately a pack per day for the last 40+ years. Prior history relatively unremarkable. Mother had a history of congestive heart failure and is . At the present time, he is asymptomatic. Hospital Course Hospital Course: This is 62 years old male patient admitted for shortness of breath, palpitation and chest pain. History set of cardiac enzymes are negative no EKG changes. This morning patient has Cardiolite cardiac stress test which is negative for reversible defect. Patient remained stable his chest pain subsided. This morning patient reevaluated by Dr. Cuevas who released him for discharge. Physical Exam Vital Signs: Temp Pulse Resp BP Pulse Ox 98.2 F 108 H 21 H 124/79 96 11/18/17 15:51 11/18/17 15:51 11/18/17 15:51 11/18/17 15:51 11/18/17 15:51 Intake & Output 11/17/17 11/18/17 11/19/17 06:59 06:59 06:59 Intake Total 1727 500 Output Total 1575 150 Balance 152 350 Weight 154.7 kg General appearance: PRESENT: no acute distress, well-developed, well-nourished Head exam: PRESENT: atraumatic, normocephalic Neck exam: ABSENT: carotid bruit, JVD, lymphadenopathy, thyromegaly Respiratory exam: PRESENT: clear to auscultation ady. ABSENT: rales, rhonchi, wheezes Cardiovascular exam: PRESENT: RRR. ABSENT: diastolic murmur, rubs, systolic murmur GI/Abdominal exam: PRESENT: normal bowel sounds, soft. ABSENT: distended, guarding, mass, organolmegaly, rebound, tenderness Neurological exam: PRESENT: alert, awake, oriented to time, oriented to situation Psychiatric exam: PRESENT: normal mood Results Laboratory Results: 11/18/17 05:44 11/18/17 05:44 11/18/17 11/18/17 05:44 05:44 WBC 10.5 RBC 4.83 Hgb 14.8 Hct 42.8 MCV 89 MCH 30.6 MCHC 34.5 RDW 13.1 Plt Count 218 Seg Neutrophils % 53.6 Lymphocytes % 32.7 Monocytes % 10.7 Eosinophils % 2.4 Basophils % 0.6 Absolute Neutrophils 5.6 Absolute Lymphocytes 3.4 Absolute Monocytes 1.1 Absolute Eosinophils 0.2 Absolute Basophils 0.1 Sodium 140.5 Potassium 4.8 Chloride 111 H Carbon Dioxide 22 Anion Gap 8 BUN 15 Creatinine 0.74 Est GFR ( Amer) > 60 Est GFR (Non-Af Amer) > 60 Glucose 91 Calcium 9.1 11/17/17 17:22 Troponin I < 0.012 Impressions: Chest X-Ray 11/16/17 07:09 IMPRESSION: No significant change. Qualifiers - * PATIENT BEING DISCHARGED WITH ANY OF THE FOLLOWING DIAGNOSIS: No
[2017-11-18 17:29] VITALS: BP 140/69
== END 2017-11-18 17:49 | disposition home or self-care (01) | DRG 309 ==
LOC: ER 07:01 → INTOOBSV 09:39 → EH 09:39 → 3S 12:08 → OBSVTOIN 11-17 12:34
PROVIDERS: ADMIT Internal Medicine; ATTEND Internal Medicine
DX: I48.91 Unspecified atrial fibrillation (principal); Z68.41 Body mass index [BMI] 40.0-44.9, adult; E66.01 Morbid (severe) obesity due to excess calories; G47.30 Sleep apnea, unspecified; F17.210 Nicotine dependence, cigarettes, uncomplicated; I10 Essential (primary) hypertension; G25.81 Restless legs syndrome; Z79.899 Other long term (current) drug therapy; Z82.49 Family history of ischemic heart disease and other diseases of the circulatory system
CPT/HCPCS: 36415; 71045; 78452; 80048; 80053; 80061; 80076; 82550; 82553; 83036; 83735; 83880; 84439; 84443; 84481; 84484; 85025; 85610; 85730; 93005; 93010; 93017; 93306; 96365; 96376; 99291; A9500; G0378; J2785; J3490; J7040